=== PATIENT | male | born 1950 | race Caucasian/White ===

== ENCOUNTER 2019-11-05 18:21 | Inpatient (IN) | payer MEDICARE ==
[~2019-11-05] VITALS: Ht 177.8 cm; Wt 70.4 kg
[~2019-11-05 18:21] MED LIST: FLUO20 PO; VYVANSE PO
[2019-11-05 19:04] LABS: BASOPHILS ABSOLUTE AUTO 0.02 K/mm3 (0.00-0.23); BASOPHILS PERCENT AUTO 0 % (0-2); EOSINOPHILS ABSOLUTE AUTO 0.03 K/mm3 (0.00-0.68); EOSINOPHILS PERCENT AUTO 1 % (0-6); Hematocrit 47.9 % (37.0-53.0); IMMATURE GRAN ABSOLUTE AUTO 0.02 K/mm3 (0.00-0.10); IMMATURE GRAN PERCENT AUTO 0 % (0-1); LYMPHOCYTES ABSOLUTE AUTO 1.56 K/mm3 (0.84-5.20); LYMPHOCYTES PERCENT AUTO 24 % (21-46); MONOCYTES ABSOLUTE AUTO 0.45 K/mm3 (0.16-1.47); MONOCYTES PERCENT AUTO 7 % (4-13); Mean Corpuscular HGB 23.5 pg (26.0-34.0); Mean Corpuscular HGB Conc 31.3 g/dL (31.5-36.5); Mean Corpuscular Volume 75 fL (80-100); Mean Platelet Volume 9.3 fL (9.1-12.4); NEUTROPHILS ABSOLUTE AUTO 4.34 K/mm3 (1.96-9.15); NEUTROPHILS PERCENT AUTO 68 % (41-73); Platelet Count 74 K/mm3 (150-400); RDW Coefficient Variation 14.5 % (11.7-14.2); RDW Standard Deviation 38.8 fL (35.1-46.3); Red Blood Cell Count 6.38 M/mm3 (4.30-5.90); White Blood Cell Count 6.42 K/mm3 (4.00-11.30)
[2019-11-05 19:24] LABS: Alanine Aminotransfer (ALT/SGP 34 U/L (12-78); Albumin, Blood 4.1 g/dL (3.4-5.0); Albumin/Globulin Ratio 1.1 (0.8-1.8); Alk Phos 79 U/L (50-136); Anion Gap 8 mmol/L (6-16); Aspartate Aminotrans (AST/SGOT 25 U/L (12-37); Bilirubin, Total 0.6 mg/dL (0.1-1.0); Blood Urea Nitrogen 23 mg/dL (8-24); Bun/Creatinine Ratio 19.8 (12.0-20.0); CO2, Blood 24 mmol/L (21-32); Calcium, Blood 9.3 mg/dL (8.5-10.1); Chloride, Blood 111 mmol/L (98-108); Creatinine, Blood 1.16 mg/dL (0.60-1.20); Ethanol (Alcohol), Blood, Med <3 mg/dL; Globulin, Blood 3.8 g/dL (2.2-4.0); Glomerular Filtration Rate >60 (60-); Glucose, Blood 94 mg/dL (70-99); Potassium, Blood 4.1 mmol/L (3.5-5.5); Sodium, Blood 143 mmol/L (136-145); Total Protein, Blood 7.9 g/dL (6.4-8.2)
[2019-11-05 19:33] LABS: International Normalized Ratio 1.06; Prothrombin Time Results 11.3 Sec (9.7-11.5)
--- NOTE | 2019-11-05 22:18 | NUR ---
ADMISSION NOTE: RECEIVED PATIENT FROM ER VIA STRETCHER. PATIENT LIFTED ONTO ICU BED, SUPPORTING RIGHT LEG. RIGHT FOOT MEASURED WITH SKIN FITTER AND SOCIAL SERVICES DIRECTOR. RIGHT FOOT EDEMATOUS; FANG BHATIA NOTED TO TOP OF FOOT; FOOT MEASURED AT 27CM; EDEMA NOTED TO RIGHT ANKLE AND CALF ALSO; PATIENT C/O SLIGHTLY SLURRED SPEECH AND NUMBNESS TO FACE AND HANDS; TONGUE FASICULATIONS NOTED; PAIN IN RIGHT FOOT 6/10. ASTRID REEVES AT BEDSIDE. PATIENT ADMISSION COMPLETED. PATIENT ORIENTED TO ROOM AND USE OF CALL URRUTIA; URINAL IN REACH. PATIENT HAS NOT VOIDED SINCE ADMISSION. IV FLUIDS STARTED INFUSING: LR AT 100CC/HR; PATIENT GIVEN DILAUDID 1MG IV FOR FOOT PAIN. RIGHT FOOT ELEVATED ON THREE PILLOWS.
[2019-11-05 22:23] LABS: Hematocrit 49.8 % (37.0-53.0); Hemoglobin 15.4 g/dL (13.5-17.5); Mean Corpuscular HGB 23.7 pg (26.0-34.0); Mean Corpuscular HGB Conc 30.9 g/dL (31.5-36.5); Mean Corpuscular Volume 77 fL (80-100); Platelet Count 210 K/mm3 (150-400); RDW Coefficient Variation 15.5 % (11.7-14.2); RDW Standard Deviation 39.9 fL (35.1-46.3); White Blood Cell Count 9.63 K/mm3 (4.00-11.30)
[2019-11-05 22:39] LABS: International Normalized Ratio 1.12; Prothrombin Time Results 11.9 Sec (9.7-11.5)
--- NOTE | 2019-11-05 23:45 | NUR ---
REC'D. CALL FROM FAIZA AT POISON CONTROL FOR UPDATE ON PATIENT CONDITION AND MOST RECENT LAB RESULTS; GIVEN ABOVE INFORMATION. RECOMMENDATIONS MADE TO GIVE MAINTAINENCE DOSE OF CROFAB 2 VIALS Q6H X 3 DOSES, AND DRAW LABS (PTT, PT, FIBRINOGEN, AND CBC) ONE HOUR AFTER EACH DOSE FINISHES INFUSING; INSTRUCTED TO CHECK AFFECTED EXTREMITY CMS AND MEASUREMENT EVERY HOUR, AND TO CALL POISON CONTROL IF SWELLING INCREASES. CALLED ASTRID REEVES WITH ABOVE RECOMMENDATIONS; ELEVATED MOTORMAN STATES SHE WILL PLACE ABOVE ORDERS.
[2019-11-06 05:38] LABS: BASOPHILS ABSOLUTE AUTO 0.02 K/mm3 (0.00-0.23); BASOPHILS PERCENT AUTO 0 % (0-2); EOSINOPHILS ABSOLUTE AUTO 0.02 K/mm3 (0.00-0.68); EOSINOPHILS PERCENT AUTO 0 % (0-6); Hematocrit 53.3 % (37.0-53.0); IMMATURE GRAN ABSOLUTE AUTO 0.03 K/mm3 (0.00-0.10); IMMATURE GRAN PERCENT AUTO 0 % (0-1); LYMPHOCYTES ABSOLUTE AUTO 1.46 K/mm3 (0.84-5.20); LYMPHOCYTES PERCENT AUTO 19 % (21-46); MONOCYTES ABSOLUTE AUTO 0.71 K/mm3 (0.16-1.47); MONOCYTES PERCENT AUTO 9 % (4-13); Mean Corpuscular Volume 80 fL (80-100); Mean Platelet Volume 9.2 fL (9.1-12.4); NEUTROPHILS ABSOLUTE AUTO 5.34 K/mm3 (1.96-9.15); NEUTROPHILS PERCENT AUTO 70 % (41-73); Platelet Count 177 K/mm3 (150-400); RDW Coefficient Variation 16.7 % (11.7-14.2); Red Blood Cell Count 6.67 M/mm3 (4.30-5.90); White Blood Cell Count 7.58 K/mm3 (4.00-11.30)
[2019-11-06 05:56] LABS: International Normalized Ratio 1.04; Prothrombin Time Results 11.1 Sec (9.7-11.5)
[2019-11-06 05:59] LABS: Alanine Aminotransfer (ALT/SGP 31 U/L (12-78); Albumin, Blood 3.4 g/dL (3.4-5.0); Albumin/Globulin Ratio 0.9 (0.8-1.8); Alk Phos 71 U/L (50-136); Anion Gap 8 mmol/L (6-16); Aspartate Aminotrans (AST/SGOT 25 U/L (12-37); Bilirubin, Total 0.9 mg/dL (0.1-1.0); Blood Urea Nitrogen 20 mg/dL (8-24); Bun/Creatinine Ratio 20.9 (12.0-20.0); CO2, Blood 21 mmol/L (21-32); Calcium, Blood 8.8 mg/dL (8.5-10.1); Chloride, Blood 108 mmol/L (98-108); Creatinine, Blood 0.96 mg/dL (0.60-1.20); Globulin, Blood 3.9 g/dL (2.2-4.0); Glomerular Filtration Rate >60 (60-); Glucose, Blood 84 mg/dL (70-99); Potassium, Blood 4.5 mmol/L (3.5-5.5); Sodium, Blood 137 mmol/L (136-145); Total Protein, Blood 7.3 g/dL (6.4-8.2)
--- NOTE | 2019-11-06 06:35 | NUR ---
SHIFT SUMMARY: PATIENT ABLE TO SLEEP MOST OF THE NIGHT. NEUROVASCULAR CHECKS TO RLE PERFORMED Q1H WITH NO CHANGES NOTED; RIGHT FOOT SWOLLEN, MEASURED Q1H; EDEMA NOTED FROM FOOT INTO CALF; PATIENT C/O SLIGHT NUMBNESS TO ALL EXTREMITIES AND FACE/MOUTH; SLIGHT TONGUE FASICULATIONS NOTED. VSS. LR INFUSING AT 100CC/HR VIA PIV TO LEFT AC. PATIENT HAS RECEIVED ONE OF THREE DOSES OF MAINTENANCE CROFAB; LABS TO BE DRAWN ONE HOUR AFTER EACH DOSE OF CROFAB. POISON CONTROL CALLED THIS AM FOR UPDATE ON PATIENT CONDITION AND LATEST LAB RESULTS; ANABEL FROM POISON CONTROL STATES NEUROVASCULAR CHECKS NEED TO BE CONTINUED UNTIL FINAL DOSE OF CROFAB IS GIVEN, AND THAT PATIENT WILL NEED TO REMAIN IN HOSPITAL FOR AT LEAST 24 HOURS FROM ADMINISTRATION OF CROFAB LOADING DOSE. PATIENT VOIDING ADEQUATE AMOUNTS CLEAR, YELLOW URINE.
--- NOTE | 2019-11-06 09:42 | NUR ---
PT RESTING IN BED. DENIES PAIN AT THE MOMENT. GAVE NAUSEA MEDS BEFORE BREAKFAST AND PT TOLERATED WELL. DENIES SOB. HAS SOME ITCHINESS TO FACE WHICH IS IMPROVED FROM NUMBNESS. STATES MOUTH IS NO LONGER NUMB. STILL HAS CONSTANT FASCICULATION OF THE TONGUE. ABLE TO WIGGLE TOES. FOOT IS SWOLLEN INTO ANKLE. FOOT IS PALE AROUND TOES AND BITE SITE. SOME GREEN BRUISING AT SITE. HAS SWELLING INTO CALF THAT IS MARKED JUST BELOW KNEE. NO CHANGE IN SWELLING SINCE SHIFT CHANGE. GETTING 2ND IVPB OF CROFAB ANTIVENOM. NO SIGN OF DISTRESS.
[2019-11-06 12:22] LABS: BASOPHILS ABSOLUTE AUTO 0.01 K/mm3 (0.00-0.23); BASOPHILS PERCENT AUTO 0 % (0-2); EOSINOPHILS ABSOLUTE AUTO 0.05 K/mm3 (0.00-0.68); EOSINOPHILS PERCENT AUTO 1 % (0-6); Hematocrit 51.9 % (37.0-53.0); Hemoglobin 15.9 g/dL (13.5-17.5); IMMATURE GRAN ABSOLUTE AUTO 0.02 K/mm3 (0.00-0.10); IMMATURE GRAN PERCENT AUTO 0 % (0-1); LYMPHOCYTES ABSOLUTE AUTO 1.42 K/mm3 (0.84-5.20); LYMPHOCYTES PERCENT AUTO 22 % (21-46); MONOCYTES ABSOLUTE AUTO 0.63 K/mm3 (0.16-1.47); MONOCYTES PERCENT AUTO 10 % (4-13); Mean Corpuscular HGB 23.8 pg (26.0-34.0); Mean Corpuscular HGB Conc 30.6 g/dL (31.5-36.5); Mean Corpuscular Volume 78 fL (80-100); Mean Platelet Volume 9.4 fL (9.1-12.4); NEUTROPHILS ABSOLUTE AUTO 4.38 K/mm3 (1.96-9.15); NEUTROPHILS PERCENT AUTO 67 % (41-73); Platelet Count 197 K/mm3 (150-400); RDW Coefficient Variation 16.5 % (11.7-14.2); Red Blood Cell Count 6.68 M/mm3 (4.30-5.90); White Blood Cell Count 6.51 K/mm3 (4.00-11.30)
[2019-11-06 12:49] LABS: Prothrombin Time Results 10.7 Sec (9.7-11.5)
--- NOTE | 2019-11-06 13:40 | NUR ---
CONSULTED WITH DR. SUH ABOUT WHETHER TO GIVE LOVENOX. DR. SUH WANTS RN TO ASK POISON CONTROL FIRST. CALLED TATI AT POISON CONTROL WHO SAID SHE WILL TALK TO TOXICOLOGY THEN CALL BACK.
--- NOTE | 2019-11-06 14:02 | NUR ---
SPOKE WITH POISON CONTROL AGAIN WHO ADVISES FOR NO ANTICOAG MEDICATIONS AT THIS TIME. WILL HOLD LOVENOX.
[2019-11-06 18:01] LABS: BASOPHILS ABSOLUTE AUTO 0.01 K/mm3 (0.00-0.23); BASOPHILS PERCENT AUTO 0 % (0-2); EOSINOPHILS ABSOLUTE AUTO 0.06 K/mm3 (0.00-0.68); EOSINOPHILS PERCENT AUTO 1 % (0-6); Hematocrit 48.2 % (37.0-53.0); Hemoglobin 14.8 g/dL (13.5-17.5); IMMATURE GRAN ABSOLUTE AUTO 0.02 K/mm3 (0.00-0.10); IMMATURE GRAN PERCENT AUTO 0 % (0-1); LYMPHOCYTES PERCENT AUTO 23 % (21-46); MONOCYTES ABSOLUTE AUTO 0.47 K/mm3 (0.16-1.47); MONOCYTES PERCENT AUTO 7 % (4-13); Mean Corpuscular HGB 23.7 pg (26.0-34.0); Mean Corpuscular HGB Conc 30.7 g/dL (31.5-36.5); Mean Corpuscular Volume 77 fL (80-100); NEUTROPHILS ABSOLUTE AUTO 4.37 K/mm3 (1.96-9.15); NEUTROPHILS PERCENT AUTO 68 % (41-73); Platelet Count 220 K/mm3 (150-400); RDW Coefficient Variation 15.2 % (11.7-14.2); RDW Standard Deviation 41.8 fL (35.1-46.3); Red Blood Cell Count 6.24 M/mm3 (4.30-5.90); White Blood Cell Count 6.43 K/mm3 (4.00-11.30)
--- NOTE | 2019-11-06 18:32 | NUR ---
SUMMARY PT A/O X4. DENIES PAIN. JUST STATES THERE IS TENDERNESS WHEN TOUCHED ON FOOT UP TO R HIP. SWELLING TO FOOT HAS NOT CHANGED THIS SHIFT. MARKED CALF WELL TO MAKE SURE IT IS NOT SWELLING MORE. INITIAL MEASUREMENT IS 36.5 CM. PT STATES HE HAS TINGLING TO FACE AND TOES. EVERY NOW AND THEN HE HAS TINGLING TO FINGER TIPS THAT COMES AND GOES. TONGUE STILL HAS FASCICULATION. NO NEURO CHANGES. 3 DOSES OF CROFAB GIVEN. POISON CONTROL HAS BEEN UPDATED ALL DAY. TOLERATING MEALS ALL DAY. NO SIGN OF DISTRESS.
[2019-11-06 19:01] LABS: International Normalized Ratio 1.02; Prothrombin Time Results 10.9 Sec (9.7-11.5)
--- NOTE | 2019-11-06 20:08 | NUR ---
ASSUMED CARE OF PATIENT AT 1900; RECEIVED REPORT FROM OFFGOING RN. RIGHT FOOT CMS AND MEASUREMENT CHECKED BY BOTH RN'S. LAB AT BEDSIDE; DIFFICULTY DRAWING LABS; LABS DRAWN FROM PIV. PATIENT C/O MINIMAL PAIN TO RIGHT LEG. 1999: CALLED [facility] CONTR[facility] WITH LAB RESULTS. PER POISON CONTROL, Q1H NEUROVASCULAR CHECKS AND MEASUREMENTS NEED TO CONTINUE UNTIL DISCHARGE, AND THAT PATIENT CANNOT BE DISCHARGED UNTIL 24 HOURS AFTER FINAL DOSE OF CROFAB GIVEN AND NO CHANGES TO EXTREMITY. POISON CONTROL ALSO ASKED FOR AM LABS TO BE DRAWN 12 HOURS AFTER LAST DOSE OF CROFAB.
--- NOTE | 2019-11-06 20:36 | NUR ---
RECIEVED CALL FROM POISON CONTROL STATING THAT PATIENT NEEDS TO HAVE ADDITIONAL CROFAB 2 VIALS IV Q6H X 2 DOSES WITH LABS ONE HOUR AFTER EACH DOSE FINISHES INFUSING. CALLED DR. SARGENT WITH POISON CONTROL RECOMMENDATIONS; REC'D. ORDERS FOR ABOVE. CALLED PHARMACY AND FAX'D. NEW ORDER.
[2019-11-06 23:26] LABS: BASOPHILS ABSOLUTE AUTO 0.01 K/mm3 (0.00-0.23); BASOPHILS PERCENT AUTO 0 % (0-2); EOSINOPHILS PERCENT AUTO 2 % (0-6); Hematocrit 42.8 % (37.0-53.0); Hemoglobin 13.1 g/dL (13.5-17.5); IMMATURE GRAN ABSOLUTE AUTO 0.03 K/mm3 (0.00-0.10); IMMATURE GRAN PERCENT AUTO 1 % (0-1); LYMPHOCYTES ABSOLUTE AUTO 1.53 K/mm3 (0.84-5.20); LYMPHOCYTES PERCENT AUTO 25 % (21-46); MONOCYTES ABSOLUTE AUTO 0.54 K/mm3 (0.16-1.47); MONOCYTES PERCENT AUTO 9 % (4-13); Mean Corpuscular HGB 23.6 pg (26.0-34.0); Mean Corpuscular HGB Conc 30.6 g/dL (31.5-36.5); Mean Corpuscular Volume 77 fL (80-100); Mean Platelet Volume 9.1 fL (9.1-12.4); NEUTROPHILS ABSOLUTE AUTO 3.91 K/mm3 (1.96-9.15); NEUTROPHILS PERCENT AUTO 64 % (41-73); Platelet Count 187 K/mm3 (150-400); RDW Coefficient Variation 14.7 % (11.7-14.2); RDW Standard Deviation 41.1 fL (35.1-46.3); Red Blood Cell Count 5.55 M/mm3 (4.30-5.90); White Blood Cell Count 6.12 K/mm3 (4.00-11.30)
[2019-11-06 23:47] LABS: International Normalized Ratio 1.05; Prothrombin Time Results 11.2 Sec (9.7-11.5)
--- NOTE | 2019-11-07 00:20 | NUR ---
CALLED POISON CONTROL WITH PATIENT'S MOST RECENT LAB RESULTS; REPORTED NO CHANGE IN EDEMA OR CMS. NO NEW RECOMMENDATIONS GIVEN AT THIS TIME.
[2019-11-07 05:32] LABS: BASOPHILS ABSOLUTE AUTO 0.02 K/mm3 (0.00-0.23); BASOPHILS PERCENT AUTO 0 % (0-2); EOSINOPHILS ABSOLUTE AUTO 0.09 K/mm3 (0.00-0.68); EOSINOPHILS PERCENT AUTO 1 % (0-6); Hematocrit 44.2 % (37.0-53.0); Hemoglobin 13.6 g/dL (13.5-17.5); IMMATURE GRAN ABSOLUTE AUTO 0.04 K/mm3 (0.00-0.10); IMMATURE GRAN PERCENT AUTO 1 % (0-1); LYMPHOCYTES ABSOLUTE AUTO 1.31 K/mm3 (0.84-5.20); LYMPHOCYTES PERCENT AUTO 21 % (21-46); MONOCYTES ABSOLUTE AUTO 0.52 K/mm3 (0.16-1.47); MONOCYTES PERCENT AUTO 8 % (4-13); Mean Corpuscular HGB 23.8 pg (26.0-34.0); Mean Corpuscular HGB Conc 30.8 g/dL (31.5-36.5); Mean Corpuscular Volume 77 fL (80-100); Mean Platelet Volume 9.3 fL (9.1-12.4); NEUTROPHILS ABSOLUTE AUTO 4.36 K/mm3 (1.96-9.15); NEUTROPHILS PERCENT AUTO 69 % (41-73); Platelet Count 178 K/mm3 (150-400); RDW Coefficient Variation 14.8 % (11.7-14.2); RDW Standard Deviation 41.2 fL (35.1-46.3); Red Blood Cell Count 5.72 M/mm3 (4.30-5.90); White Blood Cell Count 6.34 K/mm3 (4.00-11.30)
[2019-11-07 05:45] LABS: International Normalized Ratio 1.02; Prothrombin Time Results 10.9 Sec (9.7-11.5)
--- NOTE | 2019-11-07 05:45 | NUR ---
CALLED POISON CONTROL WITH LATEST LAB RESULTS AND CONTINUED EDEMA TO RLE. REC'D. RECOMMENDATION FROM POISON CONTROL FOR ADDITIONAL DOSE OF CROFAB 2 VIALS MIXED IN NS 250CC IV AT 0900; DRAW LABS ONE HOUR AFTER INFUSION COMPLETE; CALL POISON CONTROL WITH THOSE LAB RESULTS. CALLED DR. VASQUEZ WITH ABOVE RECOMMENDATIONS; REC'D. ABOVE ORDERS. CALLED PHARMACY AND FAX'D. ORDERS.
[2019-11-07 05:51] LABS: Alanine Aminotransfer (ALT/SGP 21 U/L (12-78); Albumin, Blood 2.7 g/dL (3.4-5.0); Albumin/Globulin Ratio 0.9 (0.8-1.8); Alk Phos 59 U/L (50-136); Anion Gap 4 mmol/L (6-16); Aspartate Aminotrans (AST/SGOT 19 U/L (12-37); Bilirubin, Total 0.9 mg/dL (0.1-1.0); Blood Urea Nitrogen 15 mg/dL (8-24); Bun/Creatinine Ratio 17.4 (12.0-20.0); CO2, Blood 28 mmol/L (21-32); Calcium, Blood 8.1 mg/dL (8.5-10.1); Chloride, Blood 108 mmol/L (98-108); Creatinine, Blood 0.86 mg/dL (0.60-1.20); Glomerular Filtration Rate >60 (60-); Glucose, Blood 94 mg/dL (70-99); Potassium, Blood 4.3 mmol/L (3.5-5.5); Sodium, Blood 140 mmol/L (136-145); Total Protein, Blood 5.7 g/dL (6.4-8.2)
--- NOTE | 2019-11-07 06:18 | NUR ---
SHIFT SUMMARY: PATIENT SLEPT OFF AND ON DURING THE NIGHT. CONTINUED TO PERFORM HOURLY NEUROVASCULAR CHECKS WITH MEASUREMENT; NO CHANGES IN MEASUREMENT. CALLED POISON CONTROL MULTIPLE TIMES DURING THE NIGHT; PT. WAS GIVEN TWO ADDITIONAL DOSES OF CROFAB DURING THE NIGHT, AND WILL RECEIVE ANOTHER DOSE THIS AM AT 0900. VSS. PATIENT DENIES PAIN AT THIS TIME. PATIENT VOIDING ADEQUATE AMOUNTS CLEAR, YELLOW URINE. PATIENT UPDATED ON MOST RECENT RECOMMENDATIONS FROM POISON CONTROL. CALL URRUTIA IN REACH; AWAITING DAY SHIFT FOR HANDOFF.
--- NOTE | 2019-11-07 09:32 | NUR ---
PT RESTING IN BED. DENIES PAIN. FANG PUNCTURE SITE JUST LATERAL OF MIDLINE DORSAL OF FOOT. STATES R LEG IS TENDER TO THE TOUCH BUT NOT PAINFUL. SWELLING IMPROVED IN CALF. SWELLING UNCHANGED IN FOOT. STILL HAS SLIGHT FASCICULATIONS OF THE TONGUE BUT IMPROVED FROM YESTERDAY'S ASSESSMENT. HAS FOOT ELEVATED ON PILLOW. GETTING ANOTHER DOSE OF ANTIVENOM NOW. NO REQUESTS OR COMPLAINTS. NO SIGN OF DISTRESS.
[2019-11-07 11:31] LABS: BASOPHILS ABSOLUTE AUTO 0.01 K/mm3 (0.00-0.23); BASOPHILS PERCENT AUTO 0 % (0-2); EOSINOPHILS ABSOLUTE AUTO 0.09 K/mm3 (0.00-0.68); EOSINOPHILS PERCENT AUTO 2 % (0-6); Hematocrit 43.7 % (37.0-53.0); Hemoglobin 13.2 g/dL (13.5-17.5); IMMATURE GRAN ABSOLUTE AUTO 0.02 K/mm3 (0.00-0.10); IMMATURE GRAN PERCENT AUTO 0 % (0-1); LYMPHOCYTES ABSOLUTE AUTO 0.97 K/mm3 (0.84-5.20); LYMPHOCYTES PERCENT AUTO 18 % (21-46); MONOCYTES ABSOLUTE AUTO 0.46 K/mm3 (0.16-1.47); MONOCYTES PERCENT AUTO 9 % (4-13); Mean Corpuscular HGB 23.4 pg (26.0-34.0); Mean Corpuscular HGB Conc 30.2 g/dL (31.5-36.5); Mean Corpuscular Volume 78 fL (80-100); Mean Platelet Volume 9.7 fL (9.1-12.4); NEUTROPHILS ABSOLUTE AUTO 3.83 K/mm3 (1.96-9.15); NEUTROPHILS PERCENT AUTO 71 % (41-73); Platelet Count 191 K/mm3 (150-400); RDW Coefficient Variation 14.7 % (11.7-14.2); RDW Standard Deviation 41.1 fL (35.1-46.3); Red Blood Cell Count 5.63 M/mm3 (4.30-5.90); White Blood Cell Count 5.38 K/mm3 (4.00-11.30)
[2019-11-07 12:15] LABS: International Normalized Ratio 0.99; Prothrombin Time Results 10.6 Sec (9.7-11.5)
--- NOTE | 2019-11-07 18:06 | NUR ---
SUMMARY PT DOING WELL. NO CHANGES IN NEURO STATUS AND MEASUREMENTS OF R FOOT HAVE REMAINED THE SAME. PER POISON CONTROL LONG SYMPTOMS AREN'T WORSENING PT DOES NOT NEED ANYMORE ANTIVENOM. PT WAS ABLE TO GET OOB TO WALK TO BATHROOM 2X TODAY. DID WELL BUT NEEDS WALKER DUE TO BALANCE WITH R FOOT BEING SWOLLEN IS NOT AT BASELINE. APPEARANCE OF FOOT REMAINS THE SAME. HAS NOT REQUIRED PAIN MEDS TODAY. STATES FOOT AND LEG UP TO HIP IS TENDER TO TOUCH BUT TOLERABLE. WILL BE DRAWING LABS AT 2100 TO MONITOR THEN AGAIN IN AM. POISON CONTROL SAYS THAT IF PT REMAINS STABLE WITHOUT CHANGES HE CAN GO HOME TOMORROW AFTER 0900. PT WILL NEED OUTPT LABS DRAWN. EDUCATED PT AND ABOUT THIS. IS AT BEDSIDE. NO SIGN OF DISTRESS NOW. CALL LIGHT IN REACH.
--- NOTE | 2019-11-07 19:00 | NUR ---
ASSUMED CARE OF PATIENT. RECEIVED REPORT FROM OFFGOING RN. PATIENT DENIES PAIN AT THIS TIME. RIGHT FOOT ASSESSED WITH NO CHANGES TO CMS AND MEASUREMENT; PATIENT APPEARS TO HAVE IMPROVED ROM; RIGHT CALF EDEMA REMAINS; SLIGHT FASCILULATIONS NOTED TO TONGUE; SPEECH CLEAR. ALL ABOVE ASSESSMENTS VERIFIED BY BOTH RN'S. PATIENT WITH CALL URRUTIA IN REACH.
[2019-11-07 21:11] LABS: BASOPHILS ABSOLUTE AUTO 0.01 K/mm3 (0.00-0.23); BASOPHILS PERCENT AUTO 0 % (0-2); EOSINOPHILS PERCENT AUTO 2 % (0-6); Hematocrit 43.4 % (37.0-53.0); Hemoglobin 13.2 g/dL (13.5-17.5); IMMATURE GRAN ABSOLUTE AUTO 0.01 K/mm3 (0.00-0.10); IMMATURE GRAN PERCENT AUTO 0 % (0-1); LYMPHOCYTES ABSOLUTE AUTO 1.21 K/mm3 (0.84-5.20); LYMPHOCYTES PERCENT AUTO 22 % (21-46); MONOCYTES ABSOLUTE AUTO 0.48 K/mm3 (0.16-1.47); MONOCYTES PERCENT AUTO 9 % (4-13); Mean Corpuscular HGB 23.3 pg (26.0-34.0); Mean Corpuscular HGB Conc 30.4 g/dL (31.5-36.5); Mean Corpuscular Volume 77 fL (80-100); Mean Platelet Volume 9.4 fL (9.1-12.4); NEUTROPHILS ABSOLUTE AUTO 3.71 K/mm3 (1.96-9.15); NEUTROPHILS PERCENT AUTO 67 % (41-73); Platelet Count 198 K/mm3 (150-400); RDW Coefficient Variation 14.6 % (11.7-14.2); RDW Standard Deviation 40.9 fL (35.1-46.3); Red Blood Cell Count 5.66 M/mm3 (4.30-5.90); White Blood Cell Count 5.52 K/mm3 (4.00-11.30)
[2019-11-07 21:27] LABS: International Normalized Ratio 0.97; Prothrombin Time Results 10.4 Sec (9.7-11.5)
--- NOTE | 2019-11-07 22:32 | NUR ---
CALLED POISON CONTROL WITH LAB RESULTS FROM 2100: FIBRINOGEN LEVEL UP TO 439; NO CHANGE IN PATIENT CONDITION OR RLE ASSESSMENT. NO RECOMMENDATIONS GIVEN BY POISON CONTROL AT THIS TIME. PATIENT TO HAVE LABS AGAIN IN AM.
[2019-11-08 04:32] LABS: BASOPHILS ABSOLUTE AUTO 0.01 K/mm3 (0.00-0.23); BASOPHILS PERCENT AUTO 0 % (0-2); EOSINOPHILS ABSOLUTE AUTO 0.14 K/mm3 (0.00-0.68); EOSINOPHILS PERCENT AUTO 3 % (0-6); Hematocrit 43.3 % (37.0-53.0); Hemoglobin 13.3 g/dL (13.5-17.5); IMMATURE GRAN ABSOLUTE AUTO 0.03 K/mm3 (0.00-0.10); IMMATURE GRAN PERCENT AUTO 1 % (0-1); LYMPHOCYTES ABSOLUTE AUTO 1.23 K/mm3 (0.84-5.20); LYMPHOCYTES PERCENT AUTO 23 % (21-46); MONOCYTES ABSOLUTE AUTO 0.57 K/mm3 (0.16-1.47); MONOCYTES PERCENT AUTO 11 % (4-13); Mean Corpuscular HGB 23.5 pg (26.0-34.0); Mean Corpuscular HGB Conc 30.7 g/dL (31.5-36.5); Mean Corpuscular Volume 77 fL (80-100); Mean Platelet Volume 9.5 fL (9.1-12.4); NEUTROPHILS ABSOLUTE AUTO 3.45 K/mm3 (1.96-9.15); NEUTROPHILS PERCENT AUTO 63 % (41-73); Platelet Count 189 K/mm3 (150-400); RDW Coefficient Variation 14.5 % (11.7-14.2); RDW Standard Deviation 39.9 fL (35.1-46.3); Red Blood Cell Count 5.66 M/mm3 (4.30-5.90); White Blood Cell Count 5.43 K/mm3 (4.00-11.30)
[2019-11-08 04:47] LABS: Anion Gap 4 mmol/L (6-16); Blood Urea Nitrogen 14 mg/dL (8-24); Bun/Creatinine Ratio 17.9 (12.0-20.0); CO2, Blood 29 mmol/L (21-32); Calcium, Blood 8.3 mg/dL (8.5-10.1); Chloride, Blood 106 mmol/L (98-108); Creatinine, Blood 0.78 mg/dL (0.60-1.20); Glomerular Filtration Rate >60 (60-); Glucose, Blood 96 mg/dL (70-99); Potassium, Blood 4.1 mmol/L (3.5-5.5); Sodium, Blood 139 mmol/L (136-145)
[2019-11-08 04:51] LABS: International Normalized Ratio 0.98; Prothrombin Time Results 10.5 Sec (9.7-11.5)
--- NOTE | 2019-11-08 05:47 | NUR ---
SHIFT SUMMARY: PATIENT SLEPT DURING THE NIGHT. PATIENT DENIES PAIN. RIGHT FOOT EDEMA UNCHANGED, MEASURED Q4H; RIGHT CALF EDEMA UNCHANGED. LABS DRAWN AT 2100 AND THIS AM. PATIENT VOIDING ADEQUATE AMOUNTS CLEAR, YELLOW URINE. PLAN IS FOR POSSIBLE DISCHARGE HOME LATER THIS AM. AWAITING DAY SHIFT FOR HANDOFF. CALL URRUTIA WITHIN REACH.
--- NOTE | 2019-11-08 07:38 | NUR ---
SUNDEEP BAL REPORTED OFF, NOW ASSUMING CARE OF THIS PT.
--- NOTE | 2019-11-08 07:45 | NUR ---
RT LE MEASUREMENTS: -RT FOOT CIRCUMFERENCE: 27CM -RT MID CALF CIRM: 22.25CM -RT UPPER CALF CIRC: 33.5CM
--- NOTE | 2019-11-08 09:26 | NUR ---
DR SUH HERE TO ASSESS PT. UPDATED ON PT'S STATUS. SEE NEW ORDERS.
--- NOTE | 2019-11-08 10:09 | NUR ---
PT UPDATE: AT THE BEDSIDE. UPDATED PT AND HER WITH PENDING DISHCARGE INSTRUCTIONS. CURRENTLY WORKING ON D/C INSTRUCTIONS.
--- NOTE | 2019-11-08 10:48 | NUR ---
WRITTEN/VERBAL DISCHARGE INSTRUCTIONS GIVEN. PT AND PT'S PRESENT FOR DISCHARGE INSTRUCTIONS. EDUCATED ON FOLLOW LABS AND TO F/U WITH PCP IN [place] WITHIN 1 WEEK. PT REPORTS UNDERSTANDING.
--- NOTE | 2019-11-08 11:02 | NUR ---
PT DISCHARGED HOME: ESCORTED PT VIA W/C TO 'S CARE TO TRANSPORT HOME. ALL PT'S BELONGINGS AND DISCHARGE INSTRUCTIONS SENT WITH PT.
== END 2019-11-08 10:55 | disposition home or self-care (01) | DRG 918 ==
LOC: ER 18:21 → ICUE 18:22 → ICUW 18:22 → ICUE 18:22 → ER 18:22 → ICUW 22:18 → ICUE 22:18 → ICUW 11-06 13:19 → ICUE 11-06 13:19
PROVIDERS: Emergency Medicine; Internal Medicine; Nurse Practitioner Acute Care; ADMIT Family Medicine
DX: T63.011A Toxic effect of rattlesnake venom, accidental (unintentional), initial encounter (principal); F90.9 Attention-deficit hyperactivity disorder, unspecified type; F32.9 Major depressive disorder, single episode, unspecified; Z87.891 Personal history of nicotine dependence; I10 Essential (primary) hypertension
CPT/HCPCS: 36415; 80048; 80053; 85025; 85027; 85384; 85610; 85730; 90471; 90714; 96361; 96365; 96366; 96375; 96376; 99285-25; G0378; G0480; J0840; J1170; J2405; J7050; J7120

== ENCOUNTER 2019-11-12 16:19 | Inpatient (IN) | payer MEDICARE ==
[~2019-11-12] VITALS: Ht 177.8 cm; Wt 68.8 kg
[2019-11-12] MEDS ORDERED: Vyvanse30 MG PO (17:08)
[2019-11-12 17:21] LABS: International Normalized Ratio 1.02; Prothrombin Time Results 10.9 Sec (9.7-11.5)
[2019-11-12 17:31] LABS: Alanine Aminotransfer (ALT/SGP 31 U/L (12-78); Albumin, Blood 4.2 g/dL (3.4-5.0); Albumin/Globulin Ratio 1.1 (0.8-1.8); Alk Phos 78 U/L (50-136); Anion Gap 8 mmol/L (6-16); Aspartate Aminotrans (AST/SGOT 30 U/L (12-37); Bilirubin, Direct 0.2 mg/dL (0.0-0.3); Bilirubin, Indirect 0.6 mg/dL (0.1-0.7); Bilirubin, Total 0.8 mg/dL (0.1-1.0); Blood Urea Nitrogen 24 mg/dL (8-24); Bun/Creatinine Ratio 26.8 (12.0-20.0); CO2, Blood 24 mmol/L (21-32); Calcium, Blood 9.1 mg/dL (8.5-10.1); Chloride, Blood 107 mmol/L (98-108); Globulin, Blood 3.7 g/dL (2.2-4.0); Glomerular Filtration Rate >60 (60-); Glucose, Blood 88 mg/dL (70-99); Potassium, Blood 3.9 mmol/L (3.5-5.5); Sodium, Blood 139 mmol/L (136-145); Total Protein, Blood 7.9 g/dL (6.4-8.2)
[2019-11-12 18:35] LABS: BASOPHILS ABSOLUTE AUTO 0.02 K/mm3 (0.00-0.23); BASOPHILS PERCENT AUTO 0 % (0-2); EOSINOPHILS ABSOLUTE AUTO 0.14 K/mm3 (0.00-0.68); EOSINOPHILS PERCENT AUTO 3 % (0-6); Hematocrit 44.5 % (37.0-53.0); Hemoglobin 13.7 g/dL (13.5-17.5); IMMATURE GRAN ABSOLUTE AUTO 0.02 K/mm3 (0.00-0.10); IMMATURE GRAN PERCENT AUTO 0 % (0-1); LYMPHOCYTES ABSOLUTE AUTO 1.31 K/mm3 (0.84-5.20); LYMPHOCYTES PERCENT AUTO 25 % (21-46); MONOCYTES ABSOLUTE AUTO 0.48 K/mm3 (0.16-1.47); MONOCYTES PERCENT AUTO 9 % (4-13); Mean Corpuscular HGB 23.4 pg (26.0-34.0); Mean Corpuscular HGB Conc 30.8 g/dL (31.5-36.5); Mean Corpuscular Volume 76 fL (80-100); Mean Platelet Volume 11.4 fL (9.1-12.4); NEUTROPHILS PERCENT AUTO 63 % (41-73); RDW Coefficient Variation 13.7 % (11.7-14.2); Red Blood Cell Count 5.85 M/mm3 (4.30-5.90); White Blood Cell Count 5.27 K/mm3 (4.00-11.30)
[2019-11-12 18:39] LABS: Platelet Count 20 K/mm3 (150-400)
[2019-11-12 19:13] LABS: D-Dimer, Quantitative 3.35 mg/L FEU (0.00-0.52)
--- NOTE | 2019-11-12 21:00 | NUR ---
RECEIVED PATIENT FROM ER VIA STRETCHER. PATIENT ABLE TO PIVOT TURN TO ICU BED; PLACED ON MONITOR. DISCUSSED POC AND LAB ORDERS WITH ASTRID REEVES. PATIENT ORIENTED TO ROOM; CALL URRUTIA IN REACH.
--- NOTE | 2019-11-12 23:00 | NUR ---
POST-CROFAB LABS DRAWN.
[2019-11-12 23:14] LABS: BASOPHILS ABSOLUTE AUTO 0.02 K/mm3 (0.00-0.23); BASOPHILS PERCENT AUTO 1 % (0-2); EOSINOPHILS ABSOLUTE AUTO 0.23 K/mm3 (0.00-0.68); EOSINOPHILS PERCENT AUTO 6 % (0-6); Hematocrit 42.6 % (37.0-53.0); Hemoglobin 13.3 g/dL (13.5-17.5); IMMATURE GRAN ABSOLUTE AUTO 0.02 K/mm3 (0.00-0.10); IMMATURE GRAN PERCENT AUTO 1 % (0-1); LYMPHOCYTES ABSOLUTE AUTO 1.08 K/mm3 (0.84-5.20); LYMPHOCYTES PERCENT AUTO 26 % (21-46); MONOCYTES ABSOLUTE AUTO 0.39 K/mm3 (0.16-1.47); MONOCYTES PERCENT AUTO 10 % (4-13); Mean Corpuscular HGB 23.5 pg (26.0-34.0); Mean Corpuscular HGB Conc 31.2 g/dL (31.5-36.5); Mean Corpuscular Volume 75 fL (80-100); Mean Platelet Volume 11.1 fL (9.1-12.4); NEUTROPHILS ABSOLUTE AUTO 2.37 K/mm3 (1.96-9.15); NEUTROPHILS PERCENT AUTO 58 % (41-73); RDW Standard Deviation 37.4 fL (35.1-46.3); Red Blood Cell Count 5.65 M/mm3 (4.30-5.90); White Blood Cell Count 4.11 K/mm3 (4.00-11.30)
[2019-11-12 23:17] LABS: Platelet Count 35 K/mm3 (150-400)
[2019-11-12 23:30] LABS: International Normalized Ratio 1.05; Prothrombin Time Results 11.2 Sec (9.7-11.5)
--- NOTE | 2019-11-12 23:44 | NUR ---
CALLED POISON CONTROL WITH PATIENT'S LAB RESULTS DRAWN ONE HOUR POST-CROFAB INFUSION. NO NEW ORDERS GIVEN AT THIS TIME. NEXT CROFAB DOSE DUE AT 0400.
--- NOTE | 2019-11-13 04:00 | NUR ---
CROFAB (2 VIAL DOSE) STARTED INFUSING. PATIENT C/O FEELING "TINGLING ALL OVER." STATES SXS STARTED APPROXIMATELY ONE HOUR AGO. PATIENT ALSO MEDICATED AT 0345 FOR C/O SLIGHT BABIN; STATES BABIN NOW RESOLVED. NO OTHER SXS REPORTED AT THIS TIME.
[2019-11-13 06:24] LABS: BASOPHILS ABSOLUTE AUTO 0.03 K/mm3 (0.00-0.23); BASOPHILS PERCENT AUTO 1 % (0-2); EOSINOPHILS ABSOLUTE AUTO 0.26 K/mm3 (0.00-0.68); EOSINOPHILS PERCENT AUTO 6 % (0-6); Hematocrit 40.8 % (37.0-53.0); Hemoglobin 12.8 g/dL (13.5-17.5); IMMATURE GRAN ABSOLUTE AUTO 0.02 K/mm3 (0.00-0.10); IMMATURE GRAN PERCENT AUTO 1 % (0-1); LYMPHOCYTES ABSOLUTE AUTO 1.04 K/mm3 (0.84-5.20); LYMPHOCYTES PERCENT AUTO 25 % (21-46); MONOCYTES ABSOLUTE AUTO 0.37 K/mm3 (0.16-1.47); MONOCYTES PERCENT AUTO 9 % (4-13); Mean Corpuscular HGB 23.7 pg (26.0-34.0); Mean Corpuscular HGB Conc 31.4 g/dL (31.5-36.5); Mean Corpuscular Volume 76 fL (80-100); NEUTROPHILS ABSOLUTE AUTO 2.49 K/mm3 (1.96-9.15); NEUTROPHILS PERCENT AUTO 59 % (41-73); RDW Coefficient Variation 14.1 % (11.7-14.2); RDW Standard Deviation 37.9 fL (35.1-46.3); White Blood Cell Count 4.21 K/mm3 (4.00-11.30)
--- NOTE | 2019-11-13 06:30 | NUR ---
SHIFT SUMMARY: PATIENT SLEPT MOST OF THE NIGHT. C/O BABIN; MEDICATED WITH TYLENOL 650MG PO WITH GOOD RELIEF. PATIENT GIVEN CROFAB PER MD ORDERS; AWAITING AM LABS; WILL INFORM DAY SHIFT RN OF NEED TO CALL POISON CONTROL WHEN LABS AVAILABLE. PATIENT DENIES PAIN OR SXS AT THIS TIME. AWAITING DAYSHIFT RN TO ARRIVE FOR HANDOFF REPORT.
[2019-11-13 06:35] LABS: Platelet Count 29 K/mm3 (150-400)
[2019-11-13 06:40] LABS: Anion Gap 4 mmol/L (6-16); Blood Urea Nitrogen 19 mg/dL (8-24); Bun/Creatinine Ratio 22.7 (12.0-20.0); CO2, Blood 26 mmol/L (21-32); Chloride, Blood 112 mmol/L (98-108); Creatinine, Blood 0.84 mg/dL (0.60-1.20); Glomerular Filtration Rate >60 (60-); Glucose, Blood 82 mg/dL (70-99); Potassium, Blood 3.9 mmol/L (3.5-5.5); Sodium, Blood 142 mmol/L (136-145)
[2019-11-13 06:46] LABS: International Normalized Ratio 1.06; Prothrombin Time Results 11.3 Sec (9.7-11.5)
--- NOTE | 2019-11-13 07:30 | NUR ---
Received report from Beth URBANO. Patient awake upon entry of room and throughout report. He is on RA and sats 100%. He is alert and oriented, speech clear and is able to communicate his needs. He denies any tingleing throughout body as earlier. He has 20ga RAC dressing intact and site WNL's and is flushed and SL'd. He also has 20ga LFA dressing intact and site WNL's and is infusing NS at 75 ml/hr. CHRISTINE and is independent in bed.
--- NOTE | 2019-11-13 09:34 | NUR ---
Patient continues to be awake in bed watching TV. He denies any current neds NS at 75ml/hr continues. He has urinal at bedside. No other significant chnages.
--- NOTE | 2019-11-13 11:30 | NUR ---
Crofab started shortly after 1000 and finished in an hour and labs drawn after 1200. Patient up to bathroom with SBA and did well. NS continues at 75 ml/hr. No other significant changes./
--- NOTE | 2019-11-13 13:30 | NUR ---
Patient has been relaxing in bed with at bedside. Awaiting lab draw for post Crofab. He tolerated lunch without assist and has been up to cammode again and did well. VSS, See EMR
[2019-11-13 14:30] LABS: BASOPHILS ABSOLUTE AUTO 0.01 K/mm3 (0.00-0.23); BASOPHILS PERCENT AUTO 0 % (0-2); EOSINOPHILS ABSOLUTE AUTO 0.18 K/mm3 (0.00-0.68); EOSINOPHILS PERCENT AUTO 6 % (0-6); Hematocrit 34.6 % (37.0-53.0); Hemoglobin 10.7 g/dL (13.5-17.5); IMMATURE GRAN ABSOLUTE AUTO 0.02 K/mm3 (0.00-0.10); IMMATURE GRAN PERCENT AUTO 1 % (0-1); LYMPHOCYTES ABSOLUTE AUTO 0.72 K/mm3 (0.84-5.20); LYMPHOCYTES PERCENT AUTO 23 % (21-46); MONOCYTES ABSOLUTE AUTO 0.31 K/mm3 (0.16-1.47); MONOCYTES PERCENT AUTO 10 % (4-13); Mean Corpuscular HGB 23.7 pg (26.0-34.0); Mean Corpuscular HGB Conc 30.9 g/dL (31.5-36.5); Mean Corpuscular Volume 77 fL (80-100); Mean Platelet Volume 11.2 fL (9.1-12.4); NEUTROPHILS ABSOLUTE AUTO 1.94 K/mm3 (1.96-9.15); NEUTROPHILS PERCENT AUTO 61 % (41-73); RDW Coefficient Variation 14.1 % (11.7-14.2); RDW Standard Deviation 38.9 fL (35.1-46.3); Red Blood Cell Count 4.51 M/mm3 (4.30-5.90); White Blood Cell Count 3.18 K/mm3 (4.00-11.30)
[2019-11-13 14:33] LABS: Platelet Count 30 K/mm3 (150-400)
[2019-11-13 14:49] LABS: International Normalized Ratio 1.12; Prothrombin Time Results 11.9 Sec (9.7-11.5)
[2019-11-13 15:44] LABS: Alanine Aminotransfer (ALT/SGP 20 U/L (12-78); Albumin, Blood 2.4 g/dL (3.4-5.0); Albumin/Globulin Ratio 0.9 (0.8-1.8); Alk Phos 52 U/L (50-136); Anion Gap 5 mmol/L (6-16); Aspartate Aminotrans (AST/SGOT 11 U/L (12-37); Bilirubin, Total 0.4 mg/dL (0.1-1.0); Blood Urea Nitrogen 19 mg/dL (8-24); Bun/Creatinine Ratio 24.8 (12.0-20.0); CO2, Blood 21 mmol/L (21-32); Calcium, Blood 6.6 mg/dL (8.5-10.1); Chloride, Blood 119 mmol/L (98-108); Creatinine, Blood 0.77 mg/dL (0.60-1.20); Globulin, Blood 2.6 g/dL (2.2-4.0); Glomerular Filtration Rate >60 (60-); Glucose, Blood 86 mg/dL (70-99); Potassium, Blood 3.6 mmol/L (3.5-5.5); Sodium, Blood 145 mmol/L (136-145)
--- NOTE | 2019-11-13 16:30 | NUR ---
Called poison contral with results and they called back after consulting there doctor and decided we needed to give a 4 vial bolus again as it was not working as they planned. Called Dr Couch and advised her and she stated to go ahead. Called Pharmacy and they advised aftyer bolus dose they would only have three regular doses left and [facility] had 6 vials but would not part from it. VSS, See EMR. He is up to cammod again to see if earlier stool softeners would work. No other chnages.
--- NOTE | 2019-11-13 18:35 | NUR ---
Patient just finished Crofab and will start q 6hr 2 vial doses. He continues on NS at 75 ml/hr. He remains on RA and sats >95%. He is independent in room and is SBA when up to bathroom . He had 1 BM and 800ml yellow urine and 2 unmeasured.
--- NOTE | 2019-11-13 19:00 | NUR ---
ASSUMED CARE OF PATIENT. REC'D. REPORT FROM SUNDEEP BLISS. PATIENT JUST FINISHED RECEIVING CROFAB 4 VIAL BOLUS DOSE; NEXT LABS SCHEDULED FOR 1929. PATIENT DENIES PAIN OR SXS. NS INFUSING AT 75CC/HR VIA PIV TO LEFT AC. AT BEDSIDE; UPDATED ON POC TO CONTINUE CROFAB Q6H FOR THREE MORE DOSES, THEN REEVALUATION FROM POISON CONTROL. CALL URRUTIA IN REACH.
[2019-11-13 19:47] LABS: Hematocrit 42.3 % (37.0-53.0); Hemoglobin 12.9 g/dL (13.5-17.5); Mean Corpuscular HGB 23.4 pg (26.0-34.0); Mean Corpuscular HGB Conc 30.5 g/dL (31.5-36.5); Mean Corpuscular Volume 77 fL (80-100); RDW Coefficient Variation 14.1 % (11.7-14.2); Red Blood Cell Count 5.52 M/mm3 (4.30-5.90); White Blood Cell Count 4.02 K/mm3 (4.00-11.30)
[2019-11-13 19:54] LABS: Platelet Count 41 K/mm3 (150-400)
[2019-11-13 20:02] LABS: D-Dimer, Quantitative 1.04 mg/L FEU (0.00-0.52); International Normalized Ratio 1.04; Prothrombin Time Results 11.1 Sec (9.7-11.5)
--- NOTE | 2019-11-13 20:15 | NUR ---
CALLED POISON CONTROL; UPDATED ON MOST RECENT LAB VALUES. NO NEW ORDERS OR RECOMMENDATIONS GIVEN AT THIS TIME. CONTINUE CURRENT POC.
[2019-11-14 02:43] LABS: Hematocrit 40.9 % (37.0-53.0); Hemoglobin 12.8 g/dL (13.5-17.5); Mean Corpuscular HGB 23.7 pg (26.0-34.0); Mean Corpuscular HGB Conc 31.3 g/dL (31.5-36.5); Mean Corpuscular Volume 76 fL (80-100); Mean Platelet Volume 11.3 fL (9.1-12.4); RDW Coefficient Variation 14.2 % (11.7-14.2); RDW Standard Deviation 38.6 fL (35.1-46.3); Red Blood Cell Count 5.39 M/mm3 (4.30-5.90); White Blood Cell Count 4.01 K/mm3 (4.00-11.30)
[2019-11-14 02:56] LABS: Platelet Count 39 K/mm3 (150-400)
[2019-11-14 02:59] LABS: Alanine Aminotransfer (ALT/SGP 19 U/L (12-78); Albumin/Globulin Ratio 0.9 (0.8-1.8); Alk Phos 65 U/L (50-136); Anion Gap 4 mmol/L (6-16); Aspartate Aminotrans (AST/SGOT 14 U/L (12-37); Bilirubin, Total 0.4 mg/dL (0.1-1.0); Blood Urea Nitrogen 18 mg/dL (8-24); Bun/Creatinine Ratio 19.5 (12.0-20.0); CO2, Blood 26 mmol/L (21-32); Calcium, Blood 8.2 mg/dL (8.5-10.1); Chloride, Blood 112 mmol/L (98-108); Creatinine, Blood 0.92 mg/dL (0.60-1.20); Globulin, Blood 3.3 g/dL (2.2-4.0); Glomerular Filtration Rate >60 (60-); Glucose, Blood 105 mg/dL (70-99); Potassium, Blood 3.9 mmol/L (3.5-5.5); Sodium, Blood 142 mmol/L (136-145); Total Protein, Blood 6.3 g/dL (6.4-8.2)
[2019-11-14 03:05] LABS: D-Dimer, Quantitative 1.06 mg/L FEU (0.00-0.52); International Normalized Ratio 1.04; Prothrombin Time Results 11.1 Sec (9.7-11.5)
--- NOTE | 2019-11-14 03:18 | NUR ---
CALLED POISON CONTROL WITH LATEST LAB RESULTS. NO ORDERS OR RECOMMENDATIONS GIVEN AT THIS TIME.
--- NOTE | 2019-11-14 06:26 | NUR ---
SHIFT SUMMARY: PATIENT SLEPT MOST OF THE NIGHT. PATIENT DENIES BABIN, PAIN, OR ANY OTHER SXS. PATIENT RECEIVED TWO DOSES OF CROFAB DURING THE NIGHT; LAST DOSE SCHEDULED FOR 1230 TODAY. LAST PLATELET COUNT 39. CALLED POISON CONTROL TWICE WITH LAB UPDATES. VSS. RHYTHM: SINUS [place]. PATIENT VOIDING CLEAR, YELLOW URINE. PER POISON CONTROL, ONCE 1230 DOSE OF CROFAB INFUSED AND LABS ARE CALLED, THEY WILL DETERMINE IF PATIENT WILL NEED FURTHER DOSES OF CROFAB. AWAITING DAY SHIFT RN FOR HANDOFF.
--- NOTE | 2019-11-14 07:40 | NUR ---
Received report from Beth URBANO. Patient awake upon entry to room and he is able to communicate his needs. He is on RA and sats >95%. The 0630 dose of Crofab infusing still and will await an hour and redo labs.He is independent in the room and calls when getting out of bed. He continues with NS at 75 ml/hr.
[2019-11-14 09:06] LABS: BASOPHILS ABSOLUTE AUTO 0.02 K/mm3 (0.00-0.23); BASOPHILS PERCENT AUTO 1 % (0-2); EOSINOPHILS ABSOLUTE AUTO 0.16 K/mm3 (0.00-0.68); EOSINOPHILS PERCENT AUTO 4 % (0-6); Hematocrit 39.5 % (37.0-53.0); IMMATURE GRAN ABSOLUTE AUTO 0.02 K/mm3 (0.00-0.10); IMMATURE GRAN PERCENT AUTO 1 % (0-1); LYMPHOCYTES ABSOLUTE AUTO 0.74 K/mm3 (0.84-5.20); LYMPHOCYTES PERCENT AUTO 20 % (21-46); MONOCYTES ABSOLUTE AUTO 0.24 K/mm3 (0.16-1.47); MONOCYTES PERCENT AUTO 6 % (4-13); Mean Corpuscular HGB 23.6 pg (26.0-34.0); Mean Corpuscular HGB Conc 30.4 g/dL (31.5-36.5); Mean Corpuscular Volume 78 fL (80-100); Mean Platelet Volume 10.6 fL (9.1-12.4); NEUTROPHILS PERCENT AUTO 69 % (41-73); RDW Coefficient Variation 14.1 % (11.7-14.2); RDW Standard Deviation 39.9 fL (35.1-46.3); Red Blood Cell Count 5.08 M/mm3 (4.30-5.90); White Blood Cell Count 3.78 K/mm3 (4.00-11.30)
[2019-11-14 09:12] LABS: Platelet Count 41 K/mm3 (150-400)
[2019-11-14 09:20] LABS: D-Dimer, Quantitative 1.02 mg/L FEU (0.00-0.52); International Normalized Ratio 1.04; Prothrombin Time Results 11.1 Sec (9.7-11.5)
--- NOTE | 2019-11-14 09:59 | NUR ---
Labs back and updated Poison control and will awit there response. Patient would like to go home. We have one 2 vial dose left in hospital until Friday. He tolerated 100% breakfast and am meds and has [id number] clear yellow urine out. He stated that he has had some blurred vision and passed that on to poison control and also to Dr when they arrive. VSS, See EMR
--- NOTE | 2019-11-14 12:30 | NUR ---
Worked with pharmacy and poison control to get more doses of Crofab. Dr Camacho talked with family and is going to talk with toxicology to give informed information to family. VSS, See EMR. He has been up several times to bathroom. He tolerated lunch without difficulty at 100%. Her remains on RA and sats >95%. He continues NS at 75ml/hr. No other significant changes.
[2019-11-14 14:35] LABS: Hematocrit 42.5 % (37.0-53.0); Hemoglobin 13.2 g/dL (13.5-17.5)
[2019-11-14 15:24] LABS: International Normalized Ratio 1.02; Prothrombin Time Results 10.9 Sec (9.7-11.5)
[2019-11-14 15:54] LABS: BASOPHILS ABSOLUTE AUTO 0.02 K/mm3 (0.00-0.23); BASOPHILS PERCENT AUTO 0 % (0-2); EOSINOPHILS ABSOLUTE AUTO 0.19 K/mm3 (0.00-0.68); EOSINOPHILS PERCENT AUTO 4 % (0-6); Hematocrit 42.9 % (37.0-53.0); Hemoglobin 13.3 g/dL (13.5-17.5); IMMATURE GRAN ABSOLUTE AUTO 0.03 K/mm3 (0.00-0.10); IMMATURE GRAN PERCENT AUTO 1 % (0-1); LYMPHOCYTES ABSOLUTE AUTO 1.17 K/mm3 (0.84-5.20); LYMPHOCYTES PERCENT AUTO 24 % (21-46); MONOCYTES ABSOLUTE AUTO 0.39 K/mm3 (0.16-1.47); MONOCYTES PERCENT AUTO 8 % (4-13); Mean Corpuscular HGB 23.6 pg (26.0-34.0); Mean Corpuscular Volume 76 fL (80-100); Mean Platelet Volume 10.9 fL (9.1-12.4); NEUTROPHILS ABSOLUTE AUTO 3.16 K/mm3 (1.96-9.15); NEUTROPHILS PERCENT AUTO 64 % (41-73); Platelet Count 55 K/mm3 (150-400); RDW Coefficient Variation 14.2 % (11.7-14.2); Red Blood Cell Count 5.63 M/mm3 (4.30-5.90); White Blood Cell Count 4.96 K/mm3 (4.00-11.30)
--- NOTE | 2019-11-14 16:00 | NUR ---
Dr Camacho talked with family and daughter on phone and after talking with pharmacy is willing to stay as we are able to get enough Crofab to last to after Friday at q6 2 vial doses. Medicated with Hydralazine for systolic 170's. Next dose 1800. remains at bedside. He continues to get up with minimal assist. He stated earlier about blurred vision that has resolved. Hr remains on RA and sats >95%.
--- NOTE | 2019-11-14 18:53 | NUR ---
Crofab started just after 1800 . He tolerated outside meal well and when getting report he stated just not feeling well. Gave report to Beth URBANO.
--- NOTE | 2019-11-14 19:00 | NUR ---
ASSUMED CARE OF PATIENT. REC'D. REPORT FROM SUNDEEP BLISS. PATIENT CURRENTLY RECEIVING CROFAB 2 VIAL DOSE. PATIENT DENIES PAIN; C/O REDNESS TO FACE; DENIES FEELING FLUSHED OR ANY OTHER SXS. PLAN IS FOR PATIENT TO RECEIVE CROFAB Q6H WITH LABS ONE HOUR AFTER INFUSION. AT BEDSIDE; PATIENT AND VERBALIZE UNDERSTANDING OF POC. CALL URRUTIA IN REACH.
[2019-11-14 20:44] LABS: BASOPHILS ABSOLUTE AUTO 0.02 K/mm3 (0.00-0.23); BASOPHILS PERCENT AUTO 0 % (0-2); EOSINOPHILS ABSOLUTE AUTO 0.13 K/mm3 (0.00-0.68); EOSINOPHILS PERCENT AUTO 3 % (0-6); Hematocrit 41.9 % (37.0-53.0); IMMATURE GRAN ABSOLUTE AUTO 0.03 K/mm3 (0.00-0.10); IMMATURE GRAN PERCENT AUTO 1 % (0-1); LYMPHOCYTES ABSOLUTE AUTO 0.98 K/mm3 (0.84-5.20); LYMPHOCYTES PERCENT AUTO 19 % (21-46); MONOCYTES PERCENT AUTO 8 % (4-13); Mean Corpuscular HGB 23.3 pg (26.0-34.0); Mean Corpuscular Volume 75 fL (80-100); Mean Platelet Volume 10.8 fL (9.1-12.4); NEUTROPHILS ABSOLUTE AUTO 3.65 K/mm3 (1.96-9.15); NEUTROPHILS PERCENT AUTO 70 % (41-73); Platelet Count 59 K/mm3 (150-400); RDW Coefficient Variation 14.2 % (11.7-14.2); RDW Standard Deviation 38.2 fL (35.1-46.3); Red Blood Cell Count 5.57 M/mm3 (4.30-5.90); White Blood Cell Count 5.21 K/mm3 (4.00-11.30)
[2019-11-14 20:58] LABS: International Normalized Ratio 1.03
[2019-11-15 03:03] LABS: BASOPHILS ABSOLUTE AUTO 0.02 K/mm3 (0.00-0.23); BASOPHILS PERCENT AUTO 0 % (0-2); EOSINOPHILS ABSOLUTE AUTO 0.18 K/mm3 (0.00-0.68); EOSINOPHILS PERCENT AUTO 3 % (0-6); Hematocrit 42.3 % (37.0-53.0); Hemoglobin 13.2 g/dL (13.5-17.5); IMMATURE GRAN ABSOLUTE AUTO 0.03 K/mm3 (0.00-0.10); IMMATURE GRAN PERCENT AUTO 1 % (0-1); LYMPHOCYTES ABSOLUTE AUTO 1.15 K/mm3 (0.84-5.20); LYMPHOCYTES PERCENT AUTO 22 % (21-46); MONOCYTES ABSOLUTE AUTO 0.44 K/mm3 (0.16-1.47); MONOCYTES PERCENT AUTO 8 % (4-13); Mean Corpuscular HGB 23.6 pg (26.0-34.0); Mean Corpuscular HGB Conc 31.2 g/dL (31.5-36.5); Mean Corpuscular Volume 76 fL (80-100); Mean Platelet Volume 10.5 fL (9.1-12.4); NEUTROPHILS ABSOLUTE AUTO 3.46 K/mm3 (1.96-9.15); NEUTROPHILS PERCENT AUTO 66 % (41-73); Platelet Count 64 K/mm3 (150-400); RDW Coefficient Variation 14.3 % (11.7-14.2); RDW Standard Deviation 38.9 fL (35.1-46.3); White Blood Cell Count 5.28 K/mm3 (4.00-11.30)
[2019-11-15 03:18] LABS: International Normalized Ratio 0.98; Prothrombin Time Results 10.5 Sec (9.7-11.5)
--- NOTE | 2019-11-15 03:47 | NUR ---
CALLED POISON CONTROL WITH PATIENT'S LAST TWO SETS OF LABS. NO NEW ORDERS OR RECOMMENDATIONS GIVEN AT THIS TIME. NEXT CROFAB DOSE DUE AT 0630. POISON CONTROL WILL CALL AT 10 AM FOR UPDATE AND FURTHER ORDERS.
--- NOTE | 2019-11-15 06:31 | NUR ---
SHIFT SUMMARY: PATIENT SLEPT MOST OF THE NIGHT. PATIENT C/O BABIN ONCE DURING THE NIGHT; MEDICATED WITH TYLENOL 650MG PO. PATIENT GIVEN CROFAB 2 VIALS Q6H PER MD ORDERS WITH LABS DRAWN ONE HOUR AFTER INFUSION; PATIENT DENIES ANY SXS. POISON CONTROL CALLED WITH LABS; THEY WILL CALL AT 10AM FOR UPDATE. NS INFUSING AT 75CC/HR VIA PIV. PATIENT VOIDING CLEAR, YELLOW URINE. CONTINUE POC. AWAITING DAY SHIFT RN FOR HANDOFF.
[2019-11-15 09:06] LABS: BASOPHILS ABSOLUTE AUTO 0.01 K/mm3 (0.00-0.23); BASOPHILS PERCENT AUTO 0 % (0-2); EOSINOPHILS ABSOLUTE AUTO 0.14 K/mm3 (0.00-0.68); EOSINOPHILS PERCENT AUTO 3 % (0-6); Hematocrit 39.8 % (37.0-53.0); Hemoglobin 12.3 g/dL (13.5-17.5); IMMATURE GRAN ABSOLUTE AUTO 0.02 K/mm3 (0.00-0.10); IMMATURE GRAN PERCENT AUTO 0 % (0-1); LYMPHOCYTES ABSOLUTE AUTO 0.91 K/mm3 (0.84-5.20); LYMPHOCYTES PERCENT AUTO 20 % (21-46); MONOCYTES ABSOLUTE AUTO 0.32 K/mm3 (0.16-1.47); MONOCYTES PERCENT AUTO 7 % (4-13); Mean Corpuscular HGB 23.7 pg (26.0-34.0); Mean Corpuscular HGB Conc 30.9 g/dL (31.5-36.5); Mean Corpuscular Volume 77 fL (80-100); Mean Platelet Volume 9.7 fL (9.1-12.4); NEUTROPHILS ABSOLUTE AUTO 3.13 K/mm3 (1.96-9.15); NEUTROPHILS PERCENT AUTO 69 % (41-73); Platelet Count 65 K/mm3 (150-400); RDW Coefficient Variation 14.4 % (11.7-14.2); RDW Standard Deviation 40.1 fL (35.1-46.3); Red Blood Cell Count 5.18 M/mm3 (4.30-5.90); White Blood Cell Count 4.53 K/mm3 (4.00-11.30)
--- NOTE | 2019-11-15 09:18 | NUR ---
Received report from Beth URBANO. Patient sleeping until i took breakfast in and crofab finished. Labs drawn. Started PowerGlide in WERNER and pulled RAC that was irritating him. He remains on RA and sats >95%. He denies and pain or current needs. He has 20ga LFA dressing intact and site WNL and is infusing NS at 75 ml/hr. He is independent in room and Caals for lines to be cleared. Will be calling poison control with am labs to update. Uses urinal appropriately and had 700 clear yellow urine. right extremity still red and minimally swallown about 10 larger.
[2019-11-15 09:19] LABS: International Normalized Ratio 0.99; Prothrombin Time Results 10.6 Sec (9.7-11.5)
--- NOTE | 2019-11-15 11:30 | NUR ---
Patient continues to rest on RA and is independent in room. He calls appropriately when needing to get up. NS at 75ml/hr. VSS See EMR.
--- NOTE | 2019-11-15 13:30 | NUR ---
Astrid done and awaiting lab draw. No changes with patient. Patient states right leg itchy.
[2019-11-15 14:18] LABS: BASOPHILS ABSOLUTE AUTO 0.01 K/mm3 (0.00-0.23); BASOPHILS PERCENT AUTO 0 % (0-2); EOSINOPHILS ABSOLUTE AUTO 0.14 K/mm3 (0.00-0.68); EOSINOPHILS PERCENT AUTO 3 % (0-6); Hematocrit 42.2 % (37.0-53.0); IMMATURE GRAN ABSOLUTE AUTO 0.02 K/mm3 (0.00-0.10); IMMATURE GRAN PERCENT AUTO 0 % (0-1); LYMPHOCYTES ABSOLUTE AUTO 1.07 K/mm3 (0.84-5.20); LYMPHOCYTES PERCENT AUTO 24 % (21-46); MONOCYTES PERCENT AUTO 9 % (4-13); Mean Corpuscular HGB 23.6 pg (26.0-34.0); Mean Corpuscular HGB Conc 30.8 g/dL (31.5-36.5); Mean Corpuscular Volume 77 fL (80-100); Mean Platelet Volume 10.3 fL (9.1-12.4); NEUTROPHILS ABSOLUTE AUTO 2.82 K/mm3 (1.96-9.15); NEUTROPHILS PERCENT AUTO 63 % (41-73); Platelet Count 80 K/mm3 (150-400); RDW Coefficient Variation 14.4 % (11.7-14.2); RDW Standard Deviation 40.3 fL (35.1-46.3); White Blood Cell Count 4.46 K/mm3 (4.00-11.30)
[2019-11-15 14:27] LABS: International Normalized Ratio 0.98; Prothrombin Time Results 10.5 Sec (9.7-11.5)
--- NOTE | 2019-11-15 15:30 | NUR ---
Patient was up walking and went and took shower. Most of redness on right leg gone and swelling as well. Labs sent and PLT are up to 80 and call Poison control fopr reccomnedation and they state Plt of 100-120 will re-evaluate for stopping crofab and going home. has been in room for several hours at bedside. VSS, See EMR. Fluids have been dc'd per Dr Camacho.
--- NOTE | 2019-11-15 17:30 | NUR ---
Patients next dose of Crofab is at 1830, then labs. NS dc'd. Independent in room. Remains on RA. Denies any needs, he is eating food from outside that brings in. remains at bedside.
--- NOTE | 2019-11-15 19:33 | NUR ---
ASSUMED CARE NOTE: ASSUMED CARE OF PT AT 1900, RECEVIED REPORT FROM IZAIAH URBANO. PT IS ALERT AND ORIENTEDX4. PT IS ON RA WITH SPO2 AT 98% PT IS IN NSR WITH HR IN THE 80'S. BT HEARD IN ALL FOUR QUADRANTS. PT DENIES ANY PAIN AT THIS TIME. RIGHT FOOT IS SLIGHTLY SWOLLEN, PT DENIES PAIN TO SITE, LLE PINK, WARM AND HAS GOOD CAP REFILL. WILL DRAW LABS AT 2029.
[2019-11-15 20:49] LABS: BASOPHILS ABSOLUTE AUTO 0.02 K/mm3 (0.00-0.23); BASOPHILS PERCENT AUTO 0 % (0-2); EOSINOPHILS ABSOLUTE AUTO 0.18 K/mm3 (0.00-0.68); EOSINOPHILS PERCENT AUTO 4 % (0-6); Hematocrit 40.3 % (37.0-53.0); Hemoglobin 12.6 g/dL (13.5-17.5); IMMATURE GRAN ABSOLUTE AUTO 0.03 K/mm3 (0.00-0.10); IMMATURE GRAN PERCENT AUTO 1 % (0-1); LYMPHOCYTES ABSOLUTE AUTO 1.23 K/mm3 (0.84-5.20); LYMPHOCYTES PERCENT AUTO 24 % (21-46); MONOCYTES ABSOLUTE AUTO 0.45 K/mm3 (0.16-1.47); MONOCYTES PERCENT AUTO 9 % (4-13); Mean Corpuscular HGB 23.9 pg (26.0-34.0); Mean Corpuscular HGB Conc 31.3 g/dL (31.5-36.5); Mean Corpuscular Volume 76 fL (80-100); Mean Platelet Volume 10.3 fL (9.1-12.4); NEUTROPHILS ABSOLUTE AUTO 3.21 K/mm3 (1.96-9.15); NEUTROPHILS PERCENT AUTO 63 % (41-73); Platelet Count 89 K/mm3 (150-400); RDW Coefficient Variation 14.4 % (11.7-14.2); RDW Standard Deviation 39.8 fL (35.1-46.3); Red Blood Cell Count 5.28 M/mm3 (4.30-5.90); White Blood Cell Count 5.12 K/mm3 (4.00-11.30)
[2019-11-15 21:04] LABS: International Normalized Ratio 0.99; Prothrombin Time Results 10.6 Sec (9.7-11.5)
--- NOTE | 2019-11-15 23:05 | NUR ---
UPDATED POISION CONTROL, SPOKE TO YANNI. INFORMED HER OF PLT COUNT, FIBRINOGEN, AND APTT.
--- NOTE | 2019-11-16 00:34 | NUR ---
TRANFER CARE TO AVI URBANO.
--- NOTE | 2019-11-16 01:00 | NUR ---
ASSUMED CARE. PT RESTING QUIETLY, USING CALL LIGHT WHICH IS WITHIN REACH. VSS, CONT NSR.
[2019-11-16 03:15] LABS: BASOPHILS ABSOLUTE AUTO 0.03 K/mm3 (0.00-0.23); BASOPHILS PERCENT AUTO 1 % (0-2); EOSINOPHILS ABSOLUTE AUTO 0.17 K/mm3 (0.00-0.68); EOSINOPHILS PERCENT AUTO 4 % (0-6); Hematocrit 39.5 % (37.0-53.0); Hemoglobin 12.2 g/dL (13.5-17.5); IMMATURE GRAN ABSOLUTE AUTO 0.05 K/mm3 (0.00-0.10); IMMATURE GRAN PERCENT AUTO 1 % (0-1); LYMPHOCYTES ABSOLUTE AUTO 1.16 K/mm3 (0.84-5.20); LYMPHOCYTES PERCENT AUTO 25 % (21-46); MONOCYTES ABSOLUTE AUTO 0.41 K/mm3 (0.16-1.47); MONOCYTES PERCENT AUTO 9 % (4-13); Mean Corpuscular HGB 23.6 pg (26.0-34.0); Mean Corpuscular HGB Conc 30.9 g/dL (31.5-36.5); Mean Corpuscular Volume 76 fL (80-100); Mean Platelet Volume 10.1 fL (9.1-12.4); NEUTROPHILS ABSOLUTE AUTO 2.79 K/mm3 (1.96-9.15); NEUTROPHILS PERCENT AUTO 60 % (41-73); Platelet Count 84 K/mm3 (150-400); RDW Coefficient Variation 14.5 % (11.7-14.2); RDW Standard Deviation 40.1 fL (35.1-46.3); Red Blood Cell Count 5.18 M/mm3 (4.30-5.90); White Blood Cell Count 4.61 K/mm3 (4.00-11.30)
[2019-11-16 03:32] LABS: International Normalized Ratio 0.97; Prothrombin Time Results 10.4 Sec (9.7-11.5)
--- NOTE | 2019-11-16 06:30 | NUR ---
NO CHANGES THIS SHIFT. VSS, VOIDING CL YELLOW PER URIAL. CROFAB DOSE DUE NOW, WILL START INFUSION. WILL CONTINUE TO MONITOR LABS.
--- NOTE | 2019-11-16 08:15 | NUR ---
PT AWAKE AND ALERT, SITTING UP EATING BREAKFAST, NORMAL RESPIRATIONS, DENIES PAIN. SNAKE BITE APPEARS WELL HEALED. MINIMAL SWELLING +1 EDEMA. NO REDNESS.
[2019-11-16 09:57] LABS: BASOPHILS ABSOLUTE AUTO 0.02 K/mm3 (0.00-0.23); BASOPHILS PERCENT AUTO 0 % (0-2); EOSINOPHILS ABSOLUTE AUTO 0.17 K/mm3 (0.00-0.68); EOSINOPHILS PERCENT AUTO 4 % (0-6); Hematocrit 42.1 % (37.0-53.0); Hemoglobin 13.1 g/dL (13.5-17.5); IMMATURE GRAN ABSOLUTE AUTO 0.05 K/mm3 (0.00-0.10); IMMATURE GRAN PERCENT AUTO 1 % (0-1); LYMPHOCYTES ABSOLUTE AUTO 1.09 K/mm3 (0.84-5.20); LYMPHOCYTES PERCENT AUTO 24 % (21-46); MONOCYTES ABSOLUTE AUTO 0.47 K/mm3 (0.16-1.47); MONOCYTES PERCENT AUTO 10 % (4-13); Mean Corpuscular HGB 23.9 pg (26.0-34.0); Mean Corpuscular HGB Conc 31.1 g/dL (31.5-36.5); Mean Corpuscular Volume 77 fL (80-100); Mean Platelet Volume 11.2 fL (9.1-12.4); NEUTROPHILS PERCENT AUTO 60 % (41-73); Platelet Count 113 K/mm3 (150-400); RDW Coefficient Variation 14.5 % (11.7-14.2); RDW Standard Deviation 39.7 fL (35.1-46.3); Red Blood Cell Count 5.48 M/mm3 (4.30-5.90)
[2019-11-16 10:24] LABS: International Normalized Ratio 0.97; Prothrombin Time Results 10.4 Sec (9.7-11.5)
--- NOTE | 2019-11-16 11:50 | NUR ---
PHONED POISON CONTROL, UPDATED ON LABS. PLATELETS NOW 113. PER POISON CONTROL PT. MAY NOT NEED MORE CROFAB. POISON CONTROL TO EVALUATE AND CONFIRM. AWAITING CALL BACK.
--- NOTE | 2019-11-16 13:46 | NUR ---
PT SITTING UP IN BED, SPEAKING WITH HIS SPOUSE. DENIES PAIN OR DISCOMFORT. NO ACTIVE BLEEDING. NO DISTRESS.
--- NOTE | 2019-11-16 17:30 | NUR ---
REPORT TO CATHERINE URBANO FOR TRANSER TO ROOM 335. PT SANDIE VIA W/C. PT. MISTRY. 1800 BLOOD SENT TO LAB. ALL BELONGINGS SENT.
[2019-11-16 18:03] LABS: BASOPHILS ABSOLUTE AUTO 0.03 K/mm3 (0.00-0.23); BASOPHILS PERCENT AUTO 1 % (0-2); EOSINOPHILS ABSOLUTE AUTO 0.15 K/mm3 (0.00-0.68); EOSINOPHILS PERCENT AUTO 3 % (0-6); Hematocrit 42.8 % (37.0-53.0); Hemoglobin 13.2 g/dL (13.5-17.5); IMMATURE GRAN ABSOLUTE AUTO 0.03 K/mm3 (0.00-0.10); IMMATURE GRAN PERCENT AUTO 1 % (0-1); LYMPHOCYTES ABSOLUTE AUTO 1.17 K/mm3 (0.84-5.20); LYMPHOCYTES PERCENT AUTO 24 % (21-46); MONOCYTES ABSOLUTE AUTO 0.43 K/mm3 (0.16-1.47); MONOCYTES PERCENT AUTO 9 % (4-13); Mean Corpuscular HGB 23.6 pg (26.0-34.0); Mean Corpuscular HGB Conc 30.8 g/dL (31.5-36.5); Mean Corpuscular Volume 76 fL (80-100); Mean Platelet Volume 9.8 fL (9.1-12.4); NEUTROPHILS PERCENT AUTO 63 % (41-73); Platelet Count 121 K/mm3 (150-400); RDW Coefficient Variation 14.4 % (11.7-14.2); RDW Standard Deviation 39.5 fL (35.1-46.3); White Blood Cell Count 4.81 K/mm3 (4.00-11.30)
--- NOTE | 2019-11-16 18:21 | NUR ---
SHIFT SUMMARY PATIENT ARRIVED TO THE FLOOR LATE THIS SHIFT. PATIENT ALERT, ORIENTED, AND INDEPENDENT UPON ARRIVAL. PATIENT ORIENTED TO THE ROOM AND MADE COMFORTABLE. PATIENT'S WITH PATIENT UPON ARRIVAL. PATIENT DENIES FURTHER NEEDS. PATIENT SITTING UP IN BED CONVERSING WITH .
[2019-11-16 18:54] LABS: International Normalized Ratio 0.98; Prothrombin Time Results 10.5 Sec (9.7-11.5)
[2019-11-17] LABS: BASOPHILS ABSOLUTE AUTO 0.03 K/mm3 (0.00-0.23); BASOPHILS PERCENT AUTO 1 % (0-2); EOSINOPHILS ABSOLUTE AUTO 0.18 K/mm3 (0.00-0.68); EOSINOPHILS PERCENT AUTO 3 % (0-6); Hematocrit 40.9 % (37.0-53.0); Hemoglobin 12.5 g/dL (13.5-17.5); IMMATURE GRAN ABSOLUTE AUTO 0.03 K/mm3 (0.00-0.10); IMMATURE GRAN PERCENT AUTO 1 % (0-1); LYMPHOCYTES ABSOLUTE AUTO 1.47 K/mm3 (0.84-5.20); LYMPHOCYTES PERCENT AUTO 28 % (21-46); MONOCYTES ABSOLUTE AUTO 0.59 K/mm3 (0.16-1.47); MONOCYTES PERCENT AUTO 11 % (4-13); Mean Corpuscular HGB 23.4 pg (26.0-34.0); Mean Corpuscular HGB Conc 30.6 g/dL (31.5-36.5); Mean Corpuscular Volume 76 fL (80-100); Mean Platelet Volume 9.6 fL (9.1-12.4); NEUTROPHILS ABSOLUTE AUTO 2.97 K/mm3 (1.96-9.15); NEUTROPHILS PERCENT AUTO 56 % (41-73); Platelet Count 120 K/mm3 (150-400); RDW Coefficient Variation 14.4 % (11.7-14.2); RDW Standard Deviation 39.4 fL (35.1-46.3); Red Blood Cell Count 5.35 M/mm3 (4.30-5.90); White Blood Cell Count 5.27 K/mm3 (4.00-11.30)
[2019-11-17 00:16] LABS: International Normalized Ratio 0.97; Prothrombin Time Results 10.4 Sec (9.7-11.5)
--- NOTE | 2019-11-17 01:05 | NUR ---
PT was transfered from ICU prior to shift change & is pleasant & cooperative. PT up indep to room with steady gait. LAbs called to poison control at 0058 to [place] & fully reviewed. PT has rash on back pink raised & he sites simulair reaction to sheets in past. Cleansed rash with karacleanse & applied moisturizing cream to back. Await AM labs & call results to poison control. PT's at bedside at shift change & supportive. Hoping PT will be able to dc home today after AM labs. Crofab antivenom treatment post snakebite was finished in ICU yesterday. PT continues on tele monitor sinus kamila at 56. Had 99.2 temp at shift change.
[2019-11-17 06:30] LABS: BASOPHILS ABSOLUTE AUTO 0.02 K/mm3 (0.00-0.23); BASOPHILS PERCENT AUTO 0 % (0-2); EOSINOPHILS ABSOLUTE AUTO 0.18 K/mm3 (0.00-0.68); EOSINOPHILS PERCENT AUTO 4 % (0-6); Hematocrit 41.2 % (37.0-53.0); Hemoglobin 12.8 g/dL (13.5-17.5); IMMATURE GRAN ABSOLUTE AUTO 0.04 K/mm3 (0.00-0.10); IMMATURE GRAN PERCENT AUTO 1 % (0-1); LYMPHOCYTES PERCENT AUTO 28 % (21-46); MONOCYTES ABSOLUTE AUTO 0.51 K/mm3 (0.16-1.47); MONOCYTES PERCENT AUTO 10 % (4-13); Mean Corpuscular HGB 23.7 pg (26.0-34.0); Mean Corpuscular HGB Conc 31.1 g/dL (31.5-36.5); Mean Corpuscular Volume 76 fL (80-100); Mean Platelet Volume 10.1 fL (9.1-12.4); NEUTROPHILS ABSOLUTE AUTO 2.88 K/mm3 (1.96-9.15); NEUTROPHILS PERCENT AUTO 57 % (41-73); Platelet Count 122 K/mm3 (150-400); RDW Coefficient Variation 14.4 % (11.7-14.2); RDW Standard Deviation 39.5 fL (35.1-46.3); White Blood Cell Count 5.03 K/mm3 (4.00-11.30)
[2019-11-17 06:39] LABS: International Normalized Ratio 0.99; Prothrombin Time Results 10.6 Sec (9.7-11.5)
--- NOTE | 2019-11-17 11:43 | NUR ---
DISCHARGE NOTE PATIENT DISCHARGED TO HOME. PATIENT ALERT, ORIENTED, AND INDEPENDENT IN THE ROOM. PLATELET COUNT TO 122 THIS AM. POISON CONTROL NOTIFIED AND ACCEPT DISCHARGE ORDERS WITH FOLLOW UP LABS IN 2-3 DAYS AND AGAIN IN 1 WEEK. PATIENT AND SPOUSE PROVIDED WITH DISCHARGE ORDERS. NO QUESTIONS AT THIS TIME. IV'S REMOVED PRIOR TO DISCHARGE. PATIENT INDEPENDENT OUT OF THE ROOM, ACCOMPANIED OUTSIDE BY THE REHAB PHYSICIAN.
== END 2019-11-17 10:22 | disposition home or self-care (01) | DRG 918 ==
LOC: ER 16:19 → ICUW 16:20 → ICUE 16:20 → MEDS 20:58 → ICUE 11-13 19:47 → MEDS 11-16 18:02
PROVIDERS: Emergency Medicine; Internal Medicine; Nurse Practitioner Acute Care; Physician Assistant; ADMIT Internal Medicine
DX: T63.011A Toxic effect of rattlesnake venom, accidental (unintentional), initial encounter (principal); D69.6 Thrombocytopenia, unspecified; F32.9 Major depressive disorder, single episode, unspecified; I10 Essential (primary) hypertension; F90.9 Attention-deficit hyperactivity disorder, unspecified type; Z87.891 Personal history of nicotine dependence
CPT/HCPCS: 36415; 80048; 80053; 80076; 83690; 85014; 85018; 85025; 85027; 85379; 85384; 85610; 85730; 86850; 86900; 86901; 96365; 96374; 96375; 96376; 99285-25; A9270; C1751; G0378; J0360; J0840; J7030; J7050